=== PATIENT | female | born 1970 | race Caucasian/White ===

== ENCOUNTER 2019-06-26 11:24 | Inpatient (IN) ==
[2019-06-26] MEDS ORDERED: ALBUTEROL/IPRATROPIUM 3 ML NEB RESP TX STA (11:52)
[2019-06-26 12:00] LABS: Basophils % 0.2 % (0.0-0.8); Eosinophils % 0.1 % (0.00-10.9); Hematocrit 37.6 VOL% (35.7-47.0); Hemoglobin 12.1 GM/DL (12.0-16.0); Immature Granulocytes % 0.5 %; Immature Granulocytes Absolute 0.08 #; Lymphocytes # 1.3 10*3/uL (1.4-4.0); Lymphocytes % 7.9 % (21.3-54.2); Mean Corpuscular HGB Conc 32.2 GM/DL (32-36); Mean Corpuscular Volume 87.9 FL (87-102); Mean Platelet Volume 8.6 FL (9.6-12.0); Monocytes % 5.7 % (1.7-12.7); Neutrophils % 85.6 % (38.7-73.9); Platelet Count 453 T/CUMM (130-400); Red Blood Count 4.28 MC/CUMM (3.8-5.5); Red Cell Distribution Width 14.2 % (9.3-17.3); White Blood Count 16.2 T/CUMM (4-12)
[2019-06-26 12:25] LABS: Alanine Aminotransferase 29 U/L (13-56); Albumin 3.7 G/DL (3.4-5.0); Alkaline Phosphatase 76 U/L (45-117); Aspartate Amino Transferase 17 U/L (0-37); Bilirubin,Total < 0.39 MG/DL (0.2-1.0); Blood Urea Nitrogen 8 MG/DL (7-18); Estimated Glom Filtration Rate 88 ML/MIN; Glucose 132 MG/DL (74-106); Total Protein 7.5 G/DL (6.4-8.3)
[2019-06-26] MEDS ORDERED: GLUCAGON 1 MG VIAL IM PRN (14:08)
[2019-06-26] MEDS ORDERED: ACETAMINOPHEN 325 MG TABLET PO PRN (14:08)
[2019-06-26] MEDS ORDERED: DEXTROSE 50% 25 GM/50 ML VIAL IV PRN (14:08)
[2019-06-26] MEDS ORDERED: ONDANSETRON 4 MG/2 ML VIAL IV PRN (14:08)
[2019-06-26] MEDS ORDERED: NON-FORMULARY MEDICATION (Albuterol Sulfate [Ventolin Hfa] 2 PUFF) INH PRN (14:10)
[2019-06-26] MEDS ORDERED: PROCHLORPERAZINE 10 MG TABLET PO PRN (14:10)
[2019-06-26 16:15] LABS: Ferritin 12.3 ng/ml (8-252)
[2019-06-26] MEDS: methylPREDNISolone SOD SUC 40 MG/1 ML VIAL IV SCH (17:28)
[2019-06-26] MEDS: ENOXAPARIN 40 MG/0.4 ML SYRINGE SUBCUT SCH (17:28)
[2019-06-26] MEDS: GABAPENTIN 300 MG CAPSULE PO SCH ×2 (17:28→20:50)
[2019-06-26] MEDS: ALBUTEROL 2 MG TABLET PO SCH ×2 (17:28→20:52)
[2019-06-26] MEDS: LEVOFLOXACIN INJ 750 MG in PREMIX 1 EACH IV SCH (18:01)
[2019-06-26] MEDS: TOPIRAMATE 100 MG TABLET PO SCH (20:50)
[2019-06-26] MEDS: THEOPHYLLINE ER 300 MG TABLET PO SCH (20:50)
[2019-06-26] MEDS: DOXEPIN 100 MG CAPSULE PO SCH (20:50)
[2019-06-26] MEDS ORDERED: NON-FORMULARY MEDICATION (Mirabegron [Myrbetriq] 50 MG) PO SCH (21:00)
[2019-06-26] MEDS ORDERED: NON-FORMULARY MEDICATION (Esomeprazole Magnesium [Nexium] 40 MG) PO SCH (21:00)
[2019-06-26] MEDS ORDERED: MONTELUKAST 10 MG TABLET PO SCH (21:00)
[2019-06-27] MEDS: methylPREDNISolone SOD SUC 40 MG/1 ML VIAL IV SCH ×2 (04:11→16:54)
[2019-06-27 05:56] LABS: Hematocrit 34.8 VOL% (35.7-47.0); Hemoglobin 11.1 GM/DL (12.0-16.0); Immature Granulocytes % 0.8 %; Immature Granulocytes Absolute 0.08 #; Lymphocytes # 0.6 10*3/uL (1.4-4.0); Lymphocytes % 6.2 % (21.3-54.2); Mean Corpuscular HGB Conc 31.9 GM/DL (32-36); Mean Corpuscular Volume 87.4 FL (87-102); Mean Platelet Volume 8.9 FL (9.6-12.0); Monocytes % 2.1 % (1.7-12.7); Neutrophils % 90.9 % (38.7-73.9); Platelet Count 401 T/CUMM (130-400); Red Blood Count 3.98 MC/CUMM (3.8-5.5); Red Cell Distribution Width 14.2 % (9.3-17.3); White Blood Count 9.7 T/CUMM (4-12)
[2019-06-27 06:12] LABS: Calcium 9.5 MG/DL (8.5-10.1); Osmolality,Calculated 275.7 MOS/KG (273-304)
[2019-06-27 06:18] LABS: Hypochromasia 1+; Lymphocytes 4 % (20-55); Platelet Estimate Adequate; Segmented Neutrophils 96 % (50-85); Total Cells Counted 100
[2019-06-27] MEDS: DILTIAZEM CD 240 MG CAPSULE PO SCH (08:57)
[2019-06-27] MEDS: CALCIUM (CARBONATE) 600 MG TABLET PO SCH (08:57)
[2019-06-27] MEDS: ROSUVASTATIN 10 MG TABLET PO SCH (08:58)
[2019-06-27] MEDS: ROFLUMILAST 500 MCG TABLET PO SCH (08:58)
[2019-06-27] MEDS: FOLIC ACID 1 MG TABLET PO SCH (08:58)
[2019-06-27] MEDS: FLUTICASONE UMECLIDIN VILANTER INH SCH (08:58)
[2019-06-27] MEDS: POTASSIUM CHLORIDE 10 MEQ TABLET PO SCH (08:59)
[2019-06-27] MEDS: PANTOPRAZOLE 40 MG TABLET PO SCH (08:59)
[2019-06-27] MEDS: CYANOCOBALAMIN 500 MCG TABLET PO SCH (08:59)
[2019-06-27] MEDS: THEOPHYLLINE ER 300 MG TABLET PO SCH ×2 (08:59→20:48)
[2019-06-27] MEDS: GABAPENTIN 300 MG CAPSULE PO SCH ×3 (08:59→20:48)
[2019-06-27] MEDS: TOPIRAMATE 100 MG TABLET PO SCH ×2 (08:59→20:48)
[2019-06-27] MEDS: CHOLECALCIFEROL 1,000 UNIT TABLET PO SCH (08:59)
[2019-06-27] MEDS: ALBUTEROL 2 MG TABLET PO SCH ×3 (08:59→20:48)
[2019-06-27] MEDS ORDERED: NON-FORMULARY MEDICATION (Alendronate 70 MG) PO SCH (09:00)
[2019-06-27] MEDS: MONTELUKAST 10 MG TABLET PO SCH ×2 (11:59→20:48)
[2019-06-27] MEDS: LEVOFLOXACIN INJ 750 MG in PREMIX 1 EACH IV SCH (16:25)
[2019-06-27] MEDS: ENOXAPARIN 40 MG/0.4 ML SYRINGE SUBCUT SCH (16:25)
[2019-06-27] MEDS: DOXEPIN 100 MG CAPSULE PO SCH (20:48)
[2019-06-27] MEDS: TEMAZEPAM 15 MG CAPSULE PO PRN (22:15)
[2019-06-28] MEDS: methylPREDNISolone SOD SUC 40 MG/1 ML VIAL IV SCH ×3 (03:55→22:58)
[2019-06-28 07:14] LABS: Basophils % 0.1 % (0.0-0.8); Eosinophils % 0.1 % (0.00-10.9); Hemoglobin 11.3 GM/DL (12.0-16.0); Immature Granulocytes % 0.7 %; Immature Granulocytes Absolute 0.11 #; Lymphocytes # 0.7 10*3/uL (1.4-4.0); Lymphocytes % 4.5 % (21.3-54.2); Mean Corpuscular HGB Conc 31.4 GM/DL (32-36); Mean Corpuscular Volume 89.3 FL (87-102); Mean Platelet Volume 10.3 FL (9.6-12.0); Monocytes % 3.4 % (1.7-12.7); Neutrophils % 91.2 % (38.7-73.9); Platelet Count 332 T/CUMM (130-400); Red Blood Count 4.03 MC/CUMM (3.8-5.5); Red Cell Distribution Width 14.3 % (9.3-17.3)
[2019-06-28 07:34] LABS: Albumin 3.4 G/DL (3.4-5.0); Bilirubin,Total 0.9 MG/DL (0.2-1.0); Calcium 9.3 MG/DL (8.5-10.1); Osmolality,Calculated 275.7 MOS/KG (273-304); Total Protein 7.3 G/DL (6.4-8.3)
[2019-06-28 07:39] LABS: Hypochromasia 2+; Lymphocytes 1 % (20-55); Microcytosis 1+; Segmented Neutrophils 97 % (50-85); Total Cells Counted 100
[2019-06-28 07:40] LABS: Ovalocytes Few; Platelet Estimate Normal; Polychromasia Slight
[2019-06-28] MEDS: CHOLECALCIFEROL 1,000 UNIT TABLET PO SCH (09:29)
[2019-06-28] MEDS: CYANOCOBALAMIN 500 MCG TABLET PO SCH (09:29)
[2019-06-28] MEDS: MONTELUKAST 10 MG TABLET PO SCH ×2 (09:30→20:52)
[2019-06-28] MEDS: TOPIRAMATE 100 MG TABLET PO SCH ×2 (09:31→20:52)
[2019-06-28] MEDS: FOLIC ACID 1 MG TABLET PO SCH (09:31)
[2019-06-28] MEDS: ROSUVASTATIN 10 MG TABLET PO SCH (09:31)
[2019-06-28] MEDS: POTASSIUM CHLORIDE 10 MEQ TABLET PO SCH (09:31)
[2019-06-28] MEDS: PANTOPRAZOLE 40 MG TABLET PO SCH (09:31)
[2019-06-28] MEDS: GABAPENTIN 300 MG CAPSULE PO SCH ×3 (09:31→20:51)
[2019-06-28] MEDS: hydroCHLOROthiazide 25 MG TABLET PO SCH (09:31)
[2019-06-28] MEDS: ALBUTEROL 2 MG TABLET PO SCH ×3 (09:31→20:52)
[2019-06-28] MEDS: CALCIUM (CARBONATE) 600 MG TABLET PO SCH (09:31)
[2019-06-28] MEDS: FLUTICASONE UMECLIDIN VILANTER INH SCH (09:32)
[2019-06-28] MEDS: DILTIAZEM CD 240 MG CAPSULE PO SCH (09:32)
[2019-06-28] MEDS: ROFLUMILAST 500 MCG TABLET PO SCH (09:32)
[2019-06-28] MEDS: THEOPHYLLINE ER 300 MG TABLET PO SCH ×2 (09:32→20:51)
[2019-06-28] MEDS: CLORAZEPATE 3.75 MG TABLET PO SCH ×2 (11:41→20:51)
[2019-06-28] MEDS: hydrALAZINE 20 MG/1 ML VIAL IV PRN ×2 (11:58→17:55)
[2019-06-28] MEDS: LEVOFLOXACIN INJ 750 MG in PREMIX 1 EACH IV SCH (16:05)
[2019-06-28 17:31] LABS: Apearance,Urine CLEAR (Clear); Bilirubin,Urine Negative (Negative); Blood, Urine Negative (Negative); Glucose,Urine (UA) Negative (Negative); Ketones,Urine Negative (Negative); Mucus,Urine Occasional /LPF (Occasional); Nitrite,Urine Negative (Negative); Protein,Urine Negative; RBC,Urine 1 /HPF (0-4); Urine Color Straw (Yellow); Urine Specific Gravity 1.009 (1.001-1.035); Urine Urobilinogen < 2.0 EU/DL (0.2-1.0); WBC,Urine <1 /HPF (0-6)
[2019-06-28] MEDS ORDERED: NITROGLYCERIN SL 0.4 MG TABLET SL ONE ×2 (18:37→19:02)
[2019-06-28] MEDS: NITROGLYCERIN SL 0.4 MG TABLET SL PRN ×2 (18:39→18:46)
[2019-06-28] MEDS ORDERED: hydrALAZINE 20 MG/1 ML VIAL IV ONE (18:58)
[2019-06-28] MEDS ORDERED: MORPHINE 4 MG/1 ML VIAL ONE (18:59)
[2019-06-28] MEDS: MORPHINE 4 MG/1 ML VIAL IV PRN ×2 (19:02→19:10)
[2019-06-28] MEDS ORDERED: ASPIRIN CHEW 81 MG TABLET PO ONE (19:03)
[2019-06-28] MEDS ORDERED: hydrALAZINE 20 MG/1 ML VIAL IV PRN (19:35)
[2019-06-28] MEDS ORDERED: hydrALAZINE 20 MG/1 ML VIAL IV SCH (20:00)
[2019-06-28] MEDS: ENOXAPARIN 40 MG/0.4 ML SYRINGE SUBCUT SCH (20:50)
[2019-06-28] MEDS: TEMAZEPAM 15 MG CAPSULE PO PRN (20:51)
[2019-06-28] MEDS: DOXEPIN 100 MG CAPSULE PO SCH (20:52)
[2019-06-29] MEDS: methylPREDNISolone SOD SUC 40 MG/1 ML VIAL IV SCH ×3 (05:28→21:04)
[2019-06-29 05:58] LABS: Basophils % 0.1 % (0.0-0.8); Hematocrit 39.4 VOL% (35.7-47.0); Hemoglobin 12.6 GM/DL (12.0-16.0); Immature Granulocytes % 1.1 %; Immature Granulocytes Absolute 0.19 #; Lymphocytes # 0.7 10*3/uL (1.4-4.0); Mean Corpuscular Volume 87.6 FL (87-102); Mean Platelet Volume 9.8 FL (9.6-12.0); Monocytes % 3.1 % (1.7-12.7); Neutrophils % 91.7 % (38.7-73.9); Platelet Count 494 T/CUMM (130-400); Red Cell Distribution Width 14.5 % (9.3-17.3); White Blood Count 16.7 T/CUMM (4-12)
[2019-06-29 06:16] LABS: Calcium 9.6 MG/DL (8.5-10.1)
[2019-06-29 06:48] LABS: Lymphocytes 9 % (20-55); Segmented Neutrophils 87 % (50-85); Total Cells Counted 100
[2019-06-29 06:49] LABS: Hypochromasia 1+; Platelet Estimate Normal; Polychromasia Few
[2019-06-29] MEDS: ALBUTEROL 2 MG TABLET PO SCH ×3 (09:14→21:05)
[2019-06-29] MEDS: THEOPHYLLINE ER 300 MG TABLET PO SCH ×2 (09:14→21:06)
[2019-06-29] MEDS: CHOLECALCIFEROL 1,000 UNIT TABLET PO SCH (09:14)
[2019-06-29] MEDS: CALCIUM (CARBONATE) 600 MG TABLET PO SCH (09:14)
[2019-06-29] MEDS: TOPIRAMATE 100 MG TABLET PO SCH ×2 (09:14→21:04)
[2019-06-29] MEDS: ROSUVASTATIN 10 MG TABLET PO SCH (09:15)
[2019-06-29] MEDS: CYANOCOBALAMIN 500 MCG TABLET PO SCH (09:15)
[2019-06-29] MEDS: POTASSIUM CHLORIDE 10 MEQ TABLET PO SCH (09:15)
[2019-06-29] MEDS: CLORAZEPATE 3.75 MG TABLET PO SCH ×3 (09:15→21:05)
[2019-06-29] MEDS: PANTOPRAZOLE 40 MG TABLET PO SCH (09:15)
[2019-06-29] MEDS: MONTELUKAST 10 MG TABLET PO SCH ×2 (09:15→21:05)
[2019-06-29] MEDS: DILTIAZEM CD 240 MG CAPSULE PO SCH ×2 (09:15→21:06)
[2019-06-29] MEDS: GABAPENTIN 300 MG CAPSULE PO SCH ×3 (09:16→21:05)
[2019-06-29] MEDS: ROFLUMILAST 500 MCG TABLET PO SCH (09:16)
[2019-06-29] MEDS: FOLIC ACID 1 MG TABLET PO SCH (09:16)
[2019-06-29] MEDS: FLUTICASONE UMECLIDIN VILANTER INH SCH (12:02)
[2019-06-29] MEDS: ALBUTEROL INHALER 8 GM INH SCH ×4 (12:03→23:19)
[2019-06-29] MEDS: POTASSIUM CHLORIDE 20 MEQ TABLET PO SCH (12:03)
[2019-06-29] MEDS: POTASSIUM CHLORIDE 20 MEQ TABLET PO PRN ×3 (14:11→19:12)
[2019-06-29] MEDS: LEVOFLOXACIN INJ 750 MG in PREMIX 1 EACH IV SCH (16:42)
[2019-06-29] MEDS: DOXEPIN 100 MG CAPSULE PO SCH (21:05)
[2019-06-29] MEDS: ENOXAPARIN 40 MG/0.4 ML SYRINGE SUBCUT SCH (21:07)
[2019-06-30] MEDS: ALBUTEROL INHALER 8 GM INH SCH ×2 (03:31→06:27)
[2019-06-30] MEDS: methylPREDNISolone SOD SUC 40 MG/1 ML VIAL IV SCH ×3 (05:55→18:08)
[2019-06-30 07:21] LABS: Basophils % 0.4 % (0.0-0.8); Eosinophils # 0.1 10*3/uL (0.0-0.87); Eosinophils % 1.7 % (0.00-10.9); Hematocrit 34.6 VOL% (35.7-47.0); Hemoglobin 11.1 GM/DL (12.0-16.0); Immature Granulocytes % 0.6 %; Immature Granulocytes Absolute 0.04 #; Lymphocytes # 1.3 10*3/uL (1.4-4.0); Lymphocytes % 17.9 % (21.3-54.2); Mean Corpuscular HGB Conc 32.1 GM/DL (32-36); Mean Corpuscular Volume 91.5 FL (87-102); Mean Platelet Volume 12.1 FL (9.6-12.0); Monocytes % 8.2 % (1.7-12.7); Neutrophils % 71.2 % (38.7-73.9); Red Blood Count 3.78 MC/CUMM (3.8-5.5); Red Cell Distribution Width 15.1 % (9.3-17.3)
[2019-06-30 07:36] LABS: Platelet Count 155 T/CUMM (130-400); White Blood Count 7.2 T/CUMM (4-12)
[2019-06-30 08:33] LABS: Basophils % 0.1 % (0.0-0.8); Hematocrit 40.3 VOL% (35.7-47.0); Hemoglobin 12.7 GM/DL (12.0-16.0); Immature Granulocytes % 0.7 %; Immature Granulocytes Absolute 0.11 #; Lymphocytes # 0.6 10*3/uL (1.4-4.0); Lymphocytes % 3.7 % (21.3-54.2); Mean Corpuscular HGB Conc 31.5 GM/DL (32-36); Mean Platelet Volume 8.8 FL (9.6-12.0); Monocytes % 3.9 % (1.7-12.7); Neutrophils % 91.6 % (38.7-73.9); Platelet Count 393 T/CUMM (130-400); Red Blood Count 4.53 MC/CUMM (3.8-5.5); Red Cell Distribution Width 14.5 % (9.3-17.3); White Blood Count 15.1 T/CUMM (4-12)
[2019-06-30] MEDS: GABAPENTIN 300 MG CAPSULE PO SCH ×3 (08:59→20:33)
[2019-06-30] MEDS: MONTELUKAST 10 MG TABLET PO SCH ×2 (08:59→20:34)
[2019-06-30] MEDS: ROFLUMILAST 500 MCG TABLET PO SCH (08:59)
[2019-06-30] MEDS: ROSUVASTATIN 10 MG TABLET PO SCH (09:00)
[2019-06-30] MEDS: THEOPHYLLINE ER 300 MG TABLET PO SCH ×2 (09:00→20:35)
[2019-06-30] MEDS: CALCIUM (CARBONATE) 600 MG TABLET PO SCH (09:01)
[2019-06-30] MEDS: CHOLECALCIFEROL 1,000 UNIT TABLET PO SCH (09:01)
[2019-06-30] MEDS: CLORAZEPATE 3.75 MG TABLET PO SCH ×3 (09:01→20:34)
[2019-06-30] MEDS: TOPIRAMATE 100 MG TABLET PO SCH ×2 (09:01→20:30)
[2019-06-30] MEDS: ALBUTEROL 2 MG TABLET PO SCH ×3 (09:01→20:41)
[2019-06-30 09:02] LABS: Hypochromasia 1+; Lymphocytes 4 % (20-55); Segmented Neutrophils 90 % (50-85); Total Cells Counted 100
[2019-06-30] MEDS: POTASSIUM CHLORIDE 20 MEQ TABLET PO SCH (09:02)
[2019-06-30] MEDS: PANTOPRAZOLE 40 MG TABLET PO SCH (09:02)
[2019-06-30 09:03] LABS: Microcytosis Slight; Platelet Estimate Normal
[2019-06-30 09:08] LABS: Calcium 8.8 MG/DL (8.5-10.1); Osmolality,Calculated 278.7 MOS/KG (273-304)
[2019-06-30] MEDS: DILTIAZEM CD 240 MG CAPSULE PO SCH ×2 (09:17→20:33)
[2019-06-30] MEDS: CYANOCOBALAMIN 500 MCG TABLET PO SCH (09:18)
[2019-06-30] MEDS: FLUTICASONE UMECLIDIN VILANTER INH SCH (09:19)
[2019-06-30] MEDS: FOLIC ACID 1 MG TABLET PO SCH (09:19)
[2019-06-30 09:24] LABS: ABG Base Excess -0.7 MMOL/L (-2.5-2.5); ABG HCO3 23.9 MMOL/L (20-26); ABG Oxygen Saturation 97.6 % (95-100); ABG PCO2 38.2 MM HG (35-48); ABG PH 7.403 (7.35-7.45); ABG PO2 92.1 MM HG (80-95); ABG TCO2 21.1 MMOL/L (23-27)
[2019-06-30] MEDS ORDERED: ALBUTEROL INHALER 8 GM INH PRN (09:57)
[2019-06-30] MEDS: ALBUTEROL/IPRATROPIUM 3 ML NEB RESP TX SCH ×3 (13:00→19:28)
[2019-06-30] MEDS: LEVOFLOXACIN INJ 750 MG in PREMIX 1 EACH IV SCH (16:39)
[2019-06-30] MEDS: DOXEPIN 100 MG CAPSULE PO SCH (20:34)
[2019-06-30] MEDS: ENOXAPARIN 40 MG/0.4 ML SYRINGE SUBCUT SCH (20:34)
[2019-07-01] MEDS: ALBUTEROL/IPRATROPIUM 3 ML NEB RESP TX SCH ×4 (00:10→19:35)
[2019-07-01] MEDS: methylPREDNISolone SOD SUC 40 MG/1 ML VIAL IV SCH ×3 (01:11→17:15)
[2019-07-01 05:47] LABS: Basophils % 0.1 % (0.0-0.8); Hematocrit 34.8 VOL% (35.7-47.0); Hemoglobin 10.8 GM/DL (12.0-16.0); Immature Granulocytes % 1.4 %; Immature Granulocytes Absolute 0.16 #; Lymphocytes # 0.4 10*3/uL (1.4-4.0); Lymphocytes % 3.2 % (21.3-54.2); Mean Platelet Volume 8.9 FL (9.6-12.0); Monocytes % 2.6 % (1.7-12.7); Neutrophils % 92.7 % (38.7-73.9); Platelet Count 339 T/CUMM (130-400); Red Blood Count 3.91 MC/CUMM (3.8-5.5); Red Cell Distribution Width 14.4 % (9.3-17.3); White Blood Count 11.3 T/CUMM (4-12)
[2019-07-01 06:09] LABS: Calcium 8.6 MG/DL (8.5-10.1); Osmolality,Calculated 281.8 MOS/KG (273-304)
[2019-07-01 06:17] LABS: Anisocytosis 1+; Band Neutrophils 1 % (0-10); Lymphocytes 3 % (20-55); Nucleated Red Blood Cells 1 (0-5); Platelet Estimate Normal; Segmented Neutrophils 96 % (50-85); Total Cells Counted 100
[2019-07-01] MEDS: CALCIUM (CARBONATE) 600 MG TABLET PO SCH (08:55)
[2019-07-01] MEDS: ROSUVASTATIN 10 MG TABLET PO SCH (08:55)
[2019-07-01] MEDS: THEOPHYLLINE ER 300 MG TABLET PO SCH ×2 (08:55→21:48)
[2019-07-01] MEDS: CYANOCOBALAMIN 500 MCG TABLET PO SCH (08:55)
[2019-07-01] MEDS: hydroCHLOROthiazide 25 MG TABLET PO SCH (08:56)
[2019-07-01] MEDS: POTASSIUM CHLORIDE 20 MEQ TABLET PO SCH (08:56)
[2019-07-01] MEDS: CHOLECALCIFEROL 1,000 UNIT TABLET PO SCH (08:56)
[2019-07-01] MEDS: PANTOPRAZOLE 40 MG TABLET PO SCH (08:56)
[2019-07-01] MEDS: CLORAZEPATE 3.75 MG TABLET PO SCH ×3 (08:56→21:48)
[2019-07-01] MEDS: TOPIRAMATE 100 MG TABLET PO SCH ×2 (08:56→21:48)
[2019-07-01] MEDS: FOLIC ACID 1 MG TABLET PO SCH (08:56)
[2019-07-01] MEDS: ROFLUMILAST 500 MCG TABLET PO SCH (08:56)
[2019-07-01] MEDS: MONTELUKAST 10 MG TABLET PO SCH ×2 (08:56→21:53)
[2019-07-01] MEDS: ALBUTEROL 2 MG TABLET PO SCH ×3 (08:57→21:48)
[2019-07-01] MEDS: DILTIAZEM CD 240 MG CAPSULE PO SCH ×2 (08:57→21:49)
[2019-07-01] MEDS: GABAPENTIN 300 MG CAPSULE PO SCH ×3 (08:57→21:48)
[2019-07-01] MEDS: FLUTICASONE UMECLIDIN VILANTER INH SCH (09:03)
[2019-07-01] MEDS: DORNASE ALFA 2.5 MG/2.5 ML VIAL RESP TX SCH ×2 (14:00→19:42)
[2019-07-01] MEDS: LEVOFLOXACIN INJ 750 MG in PREMIX 1 EACH IV SCH (17:15)
[2019-07-01] MEDS: DOXEPIN 100 MG CAPSULE PO SCH (21:48)
[2019-07-01] MEDS: TEMAZEPAM 15 MG CAPSULE PO PRN (21:48)
[2019-07-01] MEDS: ENOXAPARIN 40 MG/0.4 ML SYRINGE SUBCUT SCH (21:49)
[2019-07-02] MEDS: ALBUTEROL/IPRATROPIUM 3 ML NEB RESP TX SCH ×4 (00:43→20:18)
[2019-07-02] MEDS: methylPREDNISolone SOD SUC 40 MG/1 ML VIAL IV SCH ×3 (04:38→17:53)
[2019-07-02 07:21] LABS: Basophils % 0.1 % (0.0-0.8); Hematocrit 36.5 VOL% (35.7-47.0); Hemoglobin 11.6 GM/DL (12.0-16.0); Immature Granulocytes % 1.6 %; Immature Granulocytes Absolute 0.24 #; Lymphocytes # 0.5 10*3/uL (1.4-4.0); Lymphocytes % 3.1 % (21.3-54.2); Mean Corpuscular HGB Conc 31.8 GM/DL (32-36); Mean Corpuscular Volume 86.7 FL (87-102); Mean Platelet Volume 9.2 FL (9.6-12.0); Monocytes % 3.4 % (1.7-12.7); Neutrophils % 91.8 % (38.7-73.9); Platelet Count 366 T/CUMM (130-400); Red Blood Count 4.21 MC/CUMM (3.8-5.5); Red Cell Distribution Width 14.2 % (9.3-17.3); White Blood Count 14.9 T/CUMM (4-12)
[2019-07-02] MEDS ORDERED: diphenhydrAMINE 50 MG/1 ML VIAL IM ONE (07:30)
[2019-07-02] MEDS ORDERED: BENZONATATE 100 MG CAPSULE PO ONE (07:30)
[2019-07-02] MEDS ORDERED: MEPERIDINE 50 MG/1 ML VIAL IM ONE (07:30)
[2019-07-02 07:34] LABS: PT Patient Result 10.6 SECS (9.8-11.9); Partial Thromboplastin Time 22.3 SECS (23.9-33.8)
[2019-07-02 07:46] LABS: Hypochromasia 1+; Lymphocytes 4 % (20-55); Platelet Estimate Adequate; Segmented Neutrophils 93 % (50-85); Total Cells Counted 100
[2019-07-02 07:47] LABS: Microcytosis Slight
[2019-07-02 07:54] LABS: Bilirubin,Total 0.8 MG/DL (0.2-1.0); Calcium 9.2 MG/DL (8.5-10.1); Osmolality,Calculated 279.8 MOS/KG (273-304); Total Protein 6.7 G/DL (6.4-8.3)
[2019-07-02] MEDS ORDERED: LIDOCAINE 1% 20 ML VIAL MISC INJ ONE (08:00)
[2019-07-02] MEDS ORDERED: LIDOCAINE 2% 20 ML VIAL RESP TX ONE (08:00)
[2019-07-02] MEDS ORDERED: LIDOCAINE 2% VISCOUS 100 ML BOTTLE SWISH/SPIT ONE (08:00)
[2019-07-02] MEDS: DORNASE ALFA 2.5 MG/2.5 ML VIAL RESP TX SCH ×2 (08:08→20:28)
[2019-07-02] MEDS ORDERED: MIDAZOLAM 2 MG/2 ML VIAL IV ONE (09:45)
[2019-07-02] MEDS ORDERED: MIDAZOLAM 2 MG/2 ML VIAL ONE (10:34)
[2019-07-02] MEDS: TOPIRAMATE 100 MG TABLET PO SCH ×2 (12:16→21:45)
[2019-07-02] MEDS: ALBUTEROL 2 MG TABLET PO SCH ×3 (12:16→21:45)
[2019-07-02] MEDS: DILTIAZEM CD 240 MG CAPSULE PO SCH ×2 (12:16→21:46)
[2019-07-02] MEDS: ROFLUMILAST 500 MCG TABLET PO SCH (12:16)
[2019-07-02] MEDS: CYANOCOBALAMIN 500 MCG TABLET PO SCH (12:17)
[2019-07-02] MEDS: ROSUVASTATIN 10 MG TABLET PO SCH (12:17)
[2019-07-02] MEDS: GABAPENTIN 300 MG CAPSULE PO SCH ×3 (12:17→21:46)
[2019-07-02] MEDS: CHOLECALCIFEROL 1,000 UNIT TABLET PO SCH (12:17)
[2019-07-02] MEDS: CLORAZEPATE 3.75 MG TABLET PO SCH ×3 (12:17→21:45)
[2019-07-02] MEDS: CALCIUM (CARBONATE) 600 MG TABLET PO SCH (12:18)
[2019-07-02] MEDS: POTASSIUM CHLORIDE 20 MEQ TABLET PO SCH (12:18)
[2019-07-02] MEDS: FOLIC ACID 1 MG TABLET PO SCH (12:18)
[2019-07-02] MEDS: PANTOPRAZOLE 40 MG TABLET PO SCH (12:18)
[2019-07-02] MEDS: MONTELUKAST 10 MG TABLET PO SCH ×2 (12:18→21:45)
[2019-07-02] MEDS: FLUTICASONE UMECLIDIN VILANTER INH SCH (12:19)
[2019-07-02] MEDS: THEOPHYLLINE ER 300 MG TABLET PO SCH (12:46)
[2019-07-02] MEDS: CLOTRIMAZOLE 10 MG TROCHE PO SCH ×3 (15:00→21:45)
[2019-07-02] MEDS: cefTRIAXone 2,000 MG in SYRINGE 1 EACH IV SCH (17:53)
[2019-07-02] MEDS: ENOXAPARIN 40 MG/0.4 ML SYRINGE SUBCUT SCH (21:44)
[2019-07-02] MEDS: AZELASTINE NASAL 137 MCG/SPRAY 30 ML BOTTLE BOTH NARES SCH (21:44)
[2019-07-02] MEDS: DOXEPIN 100 MG CAPSULE PO SCH (21:45)
[2019-07-02] MEDS: TEMAZEPAM 15 MG CAPSULE PO PRN (21:45)
[2019-07-03] MEDS: POTASSIUM CHLORIDE 20 MEQ TABLET PO PRN ×3 (00:37→05:56)
[2019-07-03] MEDS: ALBUTEROL/IPRATROPIUM 3 ML NEB RESP TX SCH ×4 (01:20→19:45)
[2019-07-03] MEDS: methylPREDNISolone SOD SUC 40 MG/1 ML VIAL IV SCH (04:05)
[2019-07-03] MEDS: CLOTRIMAZOLE 10 MG TROCHE PO SCH ×5 (05:56→22:19)
[2019-07-03 06:57] LABS: Calcium 8.7 MG/DL (8.5-10.1); Osmolality,Calculated 277.8 MOS/KG (273-304)
[2019-07-03] MEDS: DORNASE ALFA 2.5 MG/2.5 ML VIAL RESP TX SCH ×2 (07:25→19:45)
[2019-07-03 08:16] LABS: Basophils % 0.1 % (0.0-0.8); Hematocrit 36.3 VOL% (35.7-47.0); Hemoglobin 11.3 GM/DL (12.0-16.0); Immature Granulocytes % 1.6 %; Immature Granulocytes Absolute 0.21 #; Lymphocytes # 0.4 10*3/uL (1.4-4.0); Lymphocytes % 3.2 % (21.3-54.2); Mean Corpuscular HGB Conc 31.1 GM/DL (32-36); Mean Corpuscular Volume 88.5 FL (87-102); Mean Platelet Volume 9.5 FL (9.6-12.0); Monocytes % 2.7 % (1.7-12.7); Neutrophils % 92.4 % (38.7-73.9); Platelet Count 341 T/CUMM (130-400); Red Cell Distribution Width 14.3 % (9.3-17.3); White Blood Count 13.5 T/CUMM (4-12)
[2019-07-03 08:35] LABS: Hypochromasia 1+; Lymphocytes 2 % (20-55); Platelet Estimate Adequate; Segmented Neutrophils 92 % (50-85); Total Cells Counted 100
[2019-07-03] MEDS: CYANOCOBALAMIN 500 MCG TABLET PO SCH (10:01)
[2019-07-03] MEDS: FLUCONAZOLE 100 MG TABLET PO SCH (10:01)
[2019-07-03] MEDS: MONTELUKAST 10 MG TABLET PO SCH ×2 (10:01→22:19)
[2019-07-03] MEDS: hydroCHLOROthiazide 25 MG TABLET PO SCH (10:01)
[2019-07-03] MEDS: CLORAZEPATE 3.75 MG TABLET PO SCH ×3 (10:01→22:18)
[2019-07-03] MEDS: ALBUTEROL 2 MG TABLET PO SCH ×3 (10:01→22:18)
[2019-07-03] MEDS: DILTIAZEM CD 240 MG CAPSULE PO SCH ×2 (10:02→22:20)
[2019-07-03] MEDS: ROSUVASTATIN 10 MG TABLET PO SCH (10:02)
[2019-07-03] MEDS: CALCIUM (CARBONATE) 600 MG TABLET PO SCH (10:02)
[2019-07-03] MEDS: POTASSIUM CHLORIDE 20 MEQ TABLET PO SCH (10:02)
[2019-07-03] MEDS: FOLIC ACID 1 MG TABLET PO SCH (10:03)
[2019-07-03] MEDS: PANTOPRAZOLE 40 MG TABLET PO SCH (10:03)
[2019-07-03] MEDS: ROFLUMILAST 500 MCG TABLET PO SCH (10:03)
[2019-07-03] MEDS: GABAPENTIN 300 MG CAPSULE PO SCH ×3 (10:03→22:19)
[2019-07-03] MEDS: TOPIRAMATE 100 MG TABLET PO SCH ×2 (10:03→22:19)
[2019-07-03] MEDS: CHOLECALCIFEROL 1,000 UNIT TABLET PO SCH (10:03)
[2019-07-03] MEDS: methylPREDNISolone SOD SUC 125 MG/2 ML VIAL IV SCH ×2 (10:04→22:24)
[2019-07-03] MEDS: AZELASTINE NASAL 137 MCG/SPRAY 30 ML BOTTLE BOTH NARES SCH ×2 (10:09→22:23)
[2019-07-03] MEDS: FLUTICASONE UMECLIDIN VILANTER INH SCH (10:45)
[2019-07-03] MEDS: THEOPHYLLINE ER 300 MG TABLET PO SCH ×2 (11:48→17:55)
[2019-07-03] MEDS: cefTRIAXone 2,000 MG in SYRINGE 1 EACH IV SCH (17:55)
[2019-07-03] MEDS: DOXEPIN 100 MG CAPSULE PO SCH (22:18)
[2019-07-03] MEDS: ENOXAPARIN 40 MG/0.4 ML SYRINGE SUBCUT SCH (22:20)
[2019-07-03] MEDS: TEMAZEPAM 15 MG CAPSULE PO PRN (22:30)
[2019-07-04] MEDS: ALBUTEROL/IPRATROPIUM 3 ML NEB RESP TX SCH ×4 (00:46→19:38)
[2019-07-04] MEDS: CLOTRIMAZOLE 10 MG TROCHE PO SCH ×5 (05:54→22:23)
[2019-07-04] MEDS: DORNASE ALFA 2.5 MG/2.5 ML VIAL RESP TX SCH ×2 (07:26→19:38)
[2019-07-04] MEDS: CHOLECALCIFEROL 1,000 UNIT TABLET PO SCH (09:29)
[2019-07-04] MEDS: POTASSIUM CHLORIDE 20 MEQ TABLET PO SCH (09:29)
[2019-07-04] MEDS: FOLIC ACID 1 MG TABLET PO SCH (09:29)
[2019-07-04] MEDS: CYANOCOBALAMIN 500 MCG TABLET PO SCH (09:29)
[2019-07-04] MEDS: THEOPHYLLINE ER 300 MG TABLET PO SCH ×2 (09:29→18:11)
[2019-07-04] MEDS: MONTELUKAST 10 MG TABLET PO SCH ×2 (09:29→22:24)
[2019-07-04] MEDS: FLUCONAZOLE 100 MG TABLET PO SCH (09:29)
[2019-07-04] MEDS: CALCIUM (CARBONATE) 600 MG TABLET PO SCH (09:30)
[2019-07-04] MEDS: GABAPENTIN 300 MG CAPSULE PO SCH ×3 (09:30→22:25)
[2019-07-04] MEDS: methylPREDNISolone SOD SUC 125 MG/2 ML VIAL IV SCH ×2 (09:30→22:37)
[2019-07-04] MEDS: PANTOPRAZOLE 40 MG TABLET PO SCH (09:30)
[2019-07-04] MEDS: CLORAZEPATE 3.75 MG TABLET PO SCH ×3 (09:30→22:23)
[2019-07-04] MEDS: ROSUVASTATIN 10 MG TABLET PO SCH (09:30)
[2019-07-04] MEDS: AZELASTINE NASAL 137 MCG/SPRAY 30 ML BOTTLE BOTH NARES SCH ×2 (09:33→22:38)
[2019-07-04] MEDS: ROFLUMILAST 500 MCG TABLET PO SCH (09:36)
[2019-07-04] MEDS: ALBUTEROL 2 MG TABLET PO SCH ×3 (09:36→22:29)
[2019-07-04] MEDS: DILTIAZEM CD 240 MG CAPSULE PO SCH ×2 (09:36→22:24)
[2019-07-04] MEDS: TOPIRAMATE 100 MG TABLET PO SCH ×2 (09:36→22:25)
[2019-07-04] MEDS: FLUTICASONE UMECLIDIN VILANTER INH SCH (09:37)
[2019-07-04 11:04] LABS: Basophils % 0.2 % (0.0-0.8); Hematocrit 36.8 VOL% (35.7-47.0); Hemoglobin 11.6 GM/DL (12.0-16.0); Immature Granulocytes % 2.9 %; Immature Granulocytes Absolute 0.55 #; Lymphocytes # 0.5 10*3/uL (1.4-4.0); Lymphocytes % 2.5 % (21.3-54.2); Mean Corpuscular HGB Conc 31.5 GM/DL (32-36); Mean Platelet Volume 9.5 FL (9.6-12.0); Monocytes % 2.7 % (1.7-12.7); Neutrophils % 91.7 % (38.7-73.9); Platelet Count 347 T/CUMM (130-400); Red Blood Count 4.23 MC/CUMM (3.8-5.5); Red Cell Distribution Width 14.2 % (9.3-17.3); White Blood Count 18.8 T/CUMM (4-12)
[2019-07-04 11:23] LABS: Hypochromasia 1+; Microcytosis Slight; Osmolality,Calculated 278.2 MOS/KG (273-304); Platelet Estimate Adequate; Segmented Neutrophils 97 % (50-85); Total Cells Counted 100
[2019-07-04] MEDS: POTASSIUM CHLORIDE 20 MEQ TABLET PO PRN ×2 (11:49→15:19)
[2019-07-04] MEDS: cefTRIAXone 2,000 MG in SYRINGE 1 EACH IV SCH (18:11)
[2019-07-04] MEDS: TEMAZEPAM 15 MG CAPSULE PO PRN (22:23)
[2019-07-04] MEDS: DOXEPIN 100 MG CAPSULE PO SCH (22:24)
[2019-07-04] MEDS: ENOXAPARIN 40 MG/0.4 ML SYRINGE SUBCUT SCH (22:29)
[2019-07-05] MEDS: ALBUTEROL/IPRATROPIUM 3 ML NEB RESP TX SCH ×4 (01:00→19:27)
[2019-07-05] MEDS: CLOTRIMAZOLE 10 MG TROCHE PO SCH ×5 (06:19→22:16)
[2019-07-05 06:21] LABS: Basophils % 0.2 % (0.0-0.8); Hematocrit 35.4 VOL% (35.7-47.0); Hemoglobin 11.2 GM/DL (12.0-16.0); Immature Granulocytes % 4.3 %; Immature Granulocytes Absolute 0.83 #; Lymphocytes # 0.4 10*3/uL (1.4-4.0); Lymphocytes % 2.3 % (21.3-54.2); Mean Corpuscular HGB Conc 31.6 GM/DL (32-36); Mean Corpuscular Volume 87.4 FL (87-102); Mean Platelet Volume 9.5 FL (9.6-12.0); Monocytes % 2.8 % (1.7-12.7); Neutrophils % 90.4 % (38.7-73.9); Platelet Count 298 T/CUMM (130-400); Red Blood Count 4.05 MC/CUMM (3.8-5.5); Red Cell Distribution Width 14.4 % (9.3-17.3); White Blood Count 19.1 T/CUMM (4-12)
[2019-07-05 06:26] LABS: Calcium 8.8 MG/DL (8.5-10.1); Osmolality,Calculated 278.1 MOS/KG (273-304)
[2019-07-05 06:44] LABS: Anisocytosis 1+; Band Neutrophils 1 % (0-10); Lymphocytes 5 % (20-55); Platelet Estimate Normal; Segmented Neutrophils 92 % (50-85); Total Cells Counted 100
[2019-07-05] MEDS: DORNASE ALFA 2.5 MG/2.5 ML VIAL RESP TX SCH ×2 (07:38→19:27)
[2019-07-05] MEDS: CALCIUM (CARBONATE) 600 MG TABLET PO SCH (09:12)
[2019-07-05] MEDS: CHOLECALCIFEROL 1,000 UNIT TABLET PO SCH (09:13)
[2019-07-05] MEDS: FLUCONAZOLE 100 MG TABLET PO SCH (09:13)
[2019-07-05] MEDS: THEOPHYLLINE ER 300 MG TABLET PO SCH ×2 (09:13→17:31)
[2019-07-05] MEDS: CLORAZEPATE 3.75 MG TABLET PO SCH ×3 (09:14→22:16)
[2019-07-05] MEDS: PANTOPRAZOLE 40 MG TABLET PO SCH (09:14)
[2019-07-05] MEDS: TOPIRAMATE 100 MG TABLET PO SCH ×2 (09:14→22:16)
[2019-07-05] MEDS: POTASSIUM CHLORIDE 20 MEQ TABLET PO SCH (09:14)
[2019-07-05] MEDS: methylPREDNISolone SOD SUC 125 MG/2 ML VIAL IV SCH (09:15)
[2019-07-05] MEDS: CYANOCOBALAMIN 500 MCG TABLET PO SCH (09:15)
[2019-07-05] MEDS: hydroCHLOROthiazide 25 MG TABLET PO SCH (09:15)
[2019-07-05] MEDS: ROFLUMILAST 500 MCG TABLET PO SCH (09:15)
[2019-07-05] MEDS: ALBUTEROL 2 MG TABLET PO SCH ×3 (09:15→22:16)
[2019-07-05] MEDS: GABAPENTIN 300 MG CAPSULE PO SCH ×3 (09:15→22:16)
[2019-07-05] MEDS: FOLIC ACID 1 MG TABLET PO SCH (09:15)
[2019-07-05] MEDS: DILTIAZEM CD 240 MG CAPSULE PO SCH ×2 (09:15→22:34)
[2019-07-05] MEDS: MONTELUKAST 10 MG TABLET PO SCH ×2 (09:15→22:16)
[2019-07-05] MEDS: ROSUVASTATIN 10 MG TABLET PO SCH (09:15)
[2019-07-05] MEDS: FLUTICASONE UMECLIDIN VILANTER INH SCH (09:16)
[2019-07-05] MEDS: AZELASTINE NASAL 137 MCG/SPRAY 30 ML BOTTLE BOTH NARES SCH ×2 (09:16→22:24)
[2019-07-05] MEDS: LEVOFLOXACIN 500 MG TABLET PO SCH (14:17)
[2019-07-05] MEDS: TEMAZEPAM 15 MG CAPSULE PO PRN (22:16)
[2019-07-05] MEDS: methylPREDNISolone SOD SUC 40 MG/1 ML VIAL IV SCH (22:16)
[2019-07-05] MEDS: DOXEPIN 100 MG CAPSULE PO SCH (22:22)
[2019-07-05] MEDS: ENOXAPARIN 40 MG/0.4 ML SYRINGE SUBCUT SCH (22:35)
[2019-07-06] MEDS: ALBUTEROL/IPRATROPIUM 3 ML NEB RESP TX SCH ×4 (00:37→19:33)
[2019-07-06] MEDS: CLOTRIMAZOLE 10 MG TROCHE PO SCH ×5 (06:07→21:06)
[2019-07-06] MEDS: DORNASE ALFA 2.5 MG/2.5 ML VIAL RESP TX SCH ×2 (07:26→19:43)
[2019-07-06] MEDS: CLORAZEPATE 3.75 MG TABLET PO SCH ×3 (09:17→21:06)
[2019-07-06] MEDS: ROSUVASTATIN 10 MG TABLET PO SCH (09:17)
[2019-07-06] MEDS: TOPIRAMATE 100 MG TABLET PO SCH ×2 (09:17→21:05)
[2019-07-06] MEDS: CYANOCOBALAMIN 500 MCG TABLET PO SCH (09:17)
[2019-07-06] MEDS: FOLIC ACID 1 MG TABLET PO SCH (09:17)
[2019-07-06] MEDS: THEOPHYLLINE ER 300 MG TABLET PO SCH ×2 (09:17→17:07)
[2019-07-06] MEDS: CHOLECALCIFEROL 1,000 UNIT TABLET PO SCH (09:17)
[2019-07-06] MEDS: DILTIAZEM CD 240 MG CAPSULE PO SCH ×2 (09:17→21:05)
[2019-07-06] MEDS: MONTELUKAST 10 MG TABLET PO SCH ×2 (09:17→21:05)
[2019-07-06] MEDS: ROFLUMILAST 500 MCG TABLET PO SCH (09:18)
[2019-07-06] MEDS: CALCIUM (CARBONATE) 600 MG TABLET PO SCH (09:18)
[2019-07-06] MEDS: methylPREDNISolone SOD SUC 40 MG/1 ML VIAL IV SCH ×2 (09:18→21:05)
[2019-07-06] MEDS: GABAPENTIN 300 MG CAPSULE PO SCH ×3 (09:18→21:06)
[2019-07-06] MEDS: ALBUTEROL 2 MG TABLET PO SCH ×3 (09:18→21:05)
[2019-07-06] MEDS: PANTOPRAZOLE 40 MG TABLET PO SCH (09:18)
[2019-07-06] MEDS: POTASSIUM CHLORIDE 20 MEQ TABLET PO SCH (09:18)
[2019-07-06] MEDS: AZELASTINE NASAL 137 MCG/SPRAY 30 ML BOTTLE BOTH NARES SCH ×2 (09:19→21:06)
[2019-07-06] MEDS: FLUTICASONE UMECLIDIN VILANTER INH SCH (09:19)
[2019-07-06] MEDS: LEVOFLOXACIN 500 MG TABLET PO SCH (14:38)
[2019-07-06] MEDS: TEMAZEPAM 15 MG CAPSULE PO PRN (21:06)
[2019-07-06] MEDS: ENOXAPARIN 40 MG/0.4 ML SYRINGE SUBCUT SCH (21:06)
[2019-07-06] MEDS: DOXEPIN 100 MG CAPSULE PO SCH (21:08)
[2019-07-07] MEDS: ALBUTEROL/IPRATROPIUM 3 ML NEB RESP TX SCH ×4 (01:01→20:10)
[2019-07-07] MEDS: CLOTRIMAZOLE 10 MG TROCHE PO SCH ×5 (05:49→21:04)
[2019-07-07] MEDS: DORNASE ALFA 2.5 MG/2.5 ML VIAL RESP TX SCH ×2 (07:22→20:18)
[2019-07-07] MEDS: methylPREDNISolone SOD SUC 40 MG/1 ML VIAL IV SCH ×2 (08:55→21:04)
[2019-07-07] MEDS: FOLIC ACID 1 MG TABLET PO SCH (08:55)
[2019-07-07] MEDS: MONTELUKAST 10 MG TABLET PO SCH ×2 (08:55→21:04)
[2019-07-07] MEDS: ROSUVASTATIN 10 MG TABLET PO SCH (08:55)
[2019-07-07] MEDS: CLORAZEPATE 3.75 MG TABLET PO SCH ×3 (08:56→21:04)
[2019-07-07] MEDS: CYANOCOBALAMIN 500 MCG TABLET PO SCH (08:56)
[2019-07-07] MEDS: THEOPHYLLINE ER 300 MG TABLET PO SCH ×2 (08:56→17:18)
[2019-07-07] MEDS: ALBUTEROL 2 MG TABLET PO SCH ×3 (08:56→21:04)
[2019-07-07] MEDS: PANTOPRAZOLE 40 MG TABLET PO SCH (08:56)
[2019-07-07] MEDS: DILTIAZEM CD 240 MG CAPSULE PO SCH ×2 (08:56→21:05)
[2019-07-07] MEDS: CALCIUM (CARBONATE) 600 MG TABLET PO SCH (08:57)
[2019-07-07] MEDS: CHOLECALCIFEROL 1,000 UNIT TABLET PO SCH (08:57)
[2019-07-07] MEDS: POTASSIUM CHLORIDE 20 MEQ TABLET PO SCH (08:58)
[2019-07-07] MEDS: GABAPENTIN 300 MG CAPSULE PO SCH ×3 (08:58→21:04)
[2019-07-07] MEDS: ROFLUMILAST 500 MCG TABLET PO SCH (08:59)
[2019-07-07] MEDS: TOPIRAMATE 100 MG TABLET PO SCH ×2 (08:59→21:06)
[2019-07-07] MEDS: AZELASTINE NASAL 137 MCG/SPRAY 30 ML BOTTLE BOTH NARES SCH ×2 (08:59→21:04)
[2019-07-07] MEDS: FLUTICASONE UMECLIDIN VILANTER INH SCH (09:00)
[2019-07-07] MEDS: POLYETHYLENE GLYCOL POWDER 17 GM PACK PO PRN (11:38)
[2019-07-07] MEDS: LEVOFLOXACIN 500 MG TABLET PO SCH (15:02)
[2019-07-07] MEDS: ENOXAPARIN 40 MG/0.4 ML SYRINGE SUBCUT SCH (21:04)
[2019-07-07] MEDS: DOXEPIN 100 MG CAPSULE PO SCH (21:04)
[2019-07-07] MEDS: TEMAZEPAM 15 MG CAPSULE PO PRN (21:04)
[2019-07-08] MEDS: ALBUTEROL/IPRATROPIUM 3 ML NEB RESP TX SCH ×4 (00:45→19:30)
[2019-07-08] MEDS: CLOTRIMAZOLE 10 MG TROCHE PO SCH ×5 (06:41→21:55)
[2019-07-08] MEDS: DORNASE ALFA 2.5 MG/2.5 ML VIAL RESP TX SCH ×2 (07:29→19:30)
[2019-07-08 07:43] LABS: Basophils # 0.1 10*3/uL (0.0-0.2); Basophils % 0.3 % (0.0-0.8); Hematocrit 34.2 VOL% (35.7-47.0); Immature Granulocytes % 5.6 %; Immature Granulocytes Absolute 1.32 #; Lymphocytes # 0.6 10*3/uL (1.4-4.0); Lymphocytes % 2.4 % (21.3-54.2); Mean Corpuscular HGB Conc 32.2 GM/DL (32-36); Mean Corpuscular Volume 85.3 FL (87-102); Mean Platelet Volume 9.9 FL (9.6-12.0); Monocytes % 2.4 % (1.7-12.7); Neutrophils % 89.3 % (38.7-73.9); Platelet Count 330 T/CUMM (130-400); Red Blood Count 4.01 MC/CUMM (3.8-5.5); Red Cell Distribution Width 14.5 % (9.3-17.3); White Blood Count 23.6 T/CUMM (4-12)
[2019-07-08 07:51] LABS: Calcium 8.8 MG/DL (8.5-10.1)
[2019-07-08 08:09] LABS: Hypochromasia 1+; Lymphocytes 5 % (20-55); Platelet Estimate Adequate; Segmented Neutrophils 91 % (50-85); Total Cells Counted 100
[2019-07-08 08:10] LABS: Microcytosis Slight
[2019-07-08] MEDS: TOPIRAMATE 100 MG TABLET PO SCH ×2 (10:09→21:56)
[2019-07-08] MEDS: ROFLUMILAST 500 MCG TABLET PO SCH (10:09)
[2019-07-08] MEDS: DILTIAZEM CD 240 MG CAPSULE PO SCH ×2 (10:09→21:56)
[2019-07-08] MEDS: AZELASTINE NASAL 137 MCG/SPRAY 30 ML BOTTLE BOTH NARES SCH ×2 (10:09→21:58)
[2019-07-08] MEDS: MONTELUKAST 10 MG TABLET PO SCH ×2 (10:10→21:55)
[2019-07-08] MEDS: ALBUTEROL 2 MG TABLET PO SCH ×3 (10:10→21:57)
[2019-07-08] MEDS: POTASSIUM CHLORIDE 20 MEQ TABLET PO SCH (10:10)
[2019-07-08] MEDS: PANTOPRAZOLE 40 MG TABLET PO SCH (10:10)
[2019-07-08] MEDS: CHOLECALCIFEROL 1,000 UNIT TABLET PO SCH (10:10)
[2019-07-08] MEDS: THEOPHYLLINE ER 300 MG TABLET PO SCH ×2 (10:10→18:02)
[2019-07-08] MEDS: hydroCHLOROthiazide 25 MG TABLET PO SCH (10:10)
[2019-07-08] MEDS: ROSUVASTATIN 10 MG TABLET PO SCH (10:11)
[2019-07-08] MEDS: CYANOCOBALAMIN 500 MCG TABLET PO SCH (10:11)
[2019-07-08] MEDS: CLORAZEPATE 3.75 MG TABLET PO SCH ×3 (10:11→21:57)
[2019-07-08] MEDS: CALCIUM (CARBONATE) 600 MG TABLET PO SCH (10:11)
[2019-07-08] MEDS: FOLIC ACID 1 MG TABLET PO SCH (10:12)
[2019-07-08] MEDS: GABAPENTIN 300 MG CAPSULE PO SCH ×3 (10:12→21:55)
[2019-07-08] MEDS: methylPREDNISolone SOD SUC 40 MG/1 ML VIAL IV SCH ×2 (10:13→21:58)
[2019-07-08] MEDS: POLYETHYLENE GLYCOL POWDER 17 GM PACK PO PRN (10:13)
[2019-07-08] MEDS: FLUTICASONE UMECLIDIN VILANTER INH SCH (11:45)
[2019-07-08] MEDS: LEVOFLOXACIN 500 MG TABLET PO SCH (15:07)
[2019-07-08] MEDS: TEMAZEPAM 15 MG CAPSULE PO PRN (21:55)
[2019-07-08] MEDS: DOXEPIN 100 MG CAPSULE PO SCH (21:57)
[2019-07-08] MEDS: ENOXAPARIN 40 MG/0.4 ML SYRINGE SUBCUT SCH (21:58)
[2019-07-09] MEDS: ALBUTEROL/IPRATROPIUM 3 ML NEB RESP TX SCH ×2 (01:59→07:23)
[2019-07-09] MEDS: CLOTRIMAZOLE 10 MG TROCHE PO SCH ×2 (05:31→09:28)
[2019-07-09] MEDS: DORNASE ALFA 2.5 MG/2.5 ML VIAL RESP TX SCH (07:30)
[2019-07-09] MEDS: methylPREDNISolone SOD SUC 40 MG/1 ML VIAL IV SCH (09:20)
[2019-07-09] MEDS: AZELASTINE NASAL 137 MCG/SPRAY 30 ML BOTTLE BOTH NARES SCH (09:20)
[2019-07-09] MEDS: MONTELUKAST 10 MG TABLET PO SCH (09:21)
[2019-07-09] MEDS: ROSUVASTATIN 10 MG TABLET PO SCH (09:21)
[2019-07-09] MEDS: THEOPHYLLINE ER 300 MG TABLET PO SCH (09:22)
[2019-07-09] MEDS: DILTIAZEM CD 240 MG CAPSULE PO SCH (09:22)
[2019-07-09] MEDS: FOLIC ACID 1 MG TABLET PO SCH (09:23)
[2019-07-09] MEDS: FLUTICASONE UMECLIDIN VILANTER INH SCH (09:23)
[2019-07-09] MEDS: ALBUTEROL 2 MG TABLET PO SCH (09:23)
[2019-07-09] MEDS: CHOLECALCIFEROL 1,000 UNIT TABLET PO SCH (09:23)
[2019-07-09] MEDS: POTASSIUM CHLORIDE 20 MEQ TABLET PO SCH (09:24)
[2019-07-09] MEDS: ROFLUMILAST 500 MCG TABLET PO SCH (09:24)
[2019-07-09] MEDS: CYANOCOBALAMIN 500 MCG TABLET PO SCH (09:25)
[2019-07-09] MEDS: CLORAZEPATE 3.75 MG TABLET PO SCH (09:25)
[2019-07-09] MEDS: TOPIRAMATE 100 MG TABLET PO SCH (09:26)
[2019-07-09] MEDS: GABAPENTIN 300 MG CAPSULE PO SCH (09:26)
[2019-07-09] MEDS: PANTOPRAZOLE 40 MG TABLET PO SCH (09:27)
[2019-07-09] MEDS: CALCIUM (CARBONATE) 600 MG TABLET PO SCH (09:28)
[2019-07-09 12:55] VITALS: BP 166/89
== END 2019-07-09 13:15 | disposition swing bed (61) | DRG 190 ==
LOC: EDBD → EDUNIT# → N.ED 11:24 → SUATTDRO 14:08 → N.EDINP 14:08 → N.2E 16:04 → N.TELEN 06-30 14:46
PROVIDERS: ADMIT Internal Medicine; ATTEND Family Medicine